=== PATIENT | male | born 1950 | race African-American/Black ===

== ENCOUNTER 2018-09-27 17:32 | Emergency (ER) | payer MEDICARE, MEDICAID ==
[~2018-09-27] VITALS: Ht 172.7 cm; Wt 200.0 kg
[~2018-09-27 17:32] MED LIST: AMLO10TA PO; BISM-64 PO; CEPH-572 PO; FLO0.4C PO; HYDR25TA4 PO; OMEP20TA5 PO; ONDA4TAB6 PO; POTA20TA19 PO
[2018-09-27] MEDS ORDERED: iohexol 350MG/ML 100ml bottle IV ONE (18:08)
[2018-09-27 20:30] VITALS: BP 109/43
== END 2018-09-27 20:34 ==
LOC: ER 17:32
DX: R06.02 Shortness of breath (principal); G35 Multiple sclerosis; G89.29 Other chronic pain; Z13.89 Encounter for screening for other disorder; Z79.899 Other long term (current) drug therapy; Z88.2 Allergy status to sulfonamides
CPT/HCPCS: 71045; 71275; 93005; 94760; 99284; Q9967; 94002

== ENCOUNTER 2018-10-06 10:26 | Outpatient (CLI) | payer OTHER, MEDICAID | END 2018-10-06 23:59 | disposition home or self-care (01) | LOC: 64 CT 10:26 | PROVIDERS: ATTEND Internal Medicine Critical Care Medicine | DX: N32.89 Other specified disorders of bladder (principal); J90 Pleural effusion, not elsewhere classified; I10 Essential (primary) hypertension; Z90.49 Acquired absence of other specified parts of digestive tract; Z88.2 Allergy status to sulfonamides; Z79.899 Other long term (current) drug therapy | CPT/HCPCS: 74176 ==